=== PATIENT | female | born 1945 | race Hispanic/Latino ===

== ENCOUNTER 2018-03-15 11:53 | Emergency (ER) | payer MEDICARE, SELFPAY ==
[2018-03-15 12:12] VITALS: BP 144/85; PULSE 77; RESP 14; TEMP 37.1; O2SAT 97
--- NOTE | 2018-03-15 13:33 | ED_ITS ---
HPI - Extremity Problem <CHARLES Pace - Last Filed: 03/15/18 21:30> General Chief complaint: Extremity Problem,Nontraumatic Stated complaint: left leg pain, cough and cold Time Seen by Provider: 03/15/18 13:32 Source: patient Mode of arrival: ambulatory Limitations: no limitations History of Present Illness HPI Narrative: 72-year-old healthy female that is an everyday smoker here for complaint of pain into her posterior left leg radiating into her hip area over the past 3 days. She denies any trauma to the area. She denies any strenuous activity. She is ambulatory to the emergency room. She has been using icy hot that has been helping her discomfort. She denies any stressors to her pain. she denies any loss of bladder or bowel control. She states she also had a sore throat for the last several days as well. She denies any other concerns or compla Related Data Previous Rx's Medication Instructions Recorded cyclobenzaprine 5 mg PO TID PRN #10 tab 03/15/18 prednisone 40 mg PO DAILY #8 tab 03/15/18 Allergies Allergy/AdvReac Type Severity Reaction Status Date / Time doxylamine [From NyQuil] AdvReac Intermediate Anxiety Verified 03/15/18 12:16 pseudoephedrine [From NyQuil] AdvReac Intermediate Anxiety Verified 03/15/18 12: 16 Review of Systems <CHARLES Pace - Last Filed: 03/15/18 21:30> Constitutional Denies chills, Denies fever(s), Denies lethargy and Denies weakness Eyes Denies change in vision, Denies eye discharge, Denies irritation and Denies loss of vision ENT Ears, Nose, Mouth, and Throat: Reports sore throat Cardiovascular Denies chest pain, Denies irregular heart rhythm, Denies lightheadedness, Denies palpitations, Denies dyspnea, Denies dyspnea on exertion and Denies orthopnea Respiratory Denies cough, Denies dyspnea, Denies dyspnea on exertion and Denies wheezing Gastrointestinal Gastrointestinal: Denies abdominal pain, Denies change in bowel habits, Denies diarrhea, Denies nausea and Denies vomiting Genitourinary Denies hematuria, Denies flank pain, Denies urinary incontinence and Denies urinary urgency Musculoskeletal Denies back pain, Denies muscle weakness, Denies numbness and Denies tingling Comments: pain to left lower extremity Integumentary/Breasts Denies pruritus, Denies erythema, Denies rash and Denies wounds Neurologic Denies confusion, Denies loss of vision, Denies numbness, Denies tingling and Denies weakness Psychiatric Denies anxiety, Denies confusion, Denies depression, Denies homicidal ideation and Denies suicidal ideation Endocrine Denies palpitations Hematologic/Lymphatic Denies easy bruising Allergic/Immunologic Denies wheezing Exam <CHARLES Pace - Last Filed: 03/15/18 21:30> Initial Vital Signs Initial Vital Signs: Vital Signs Temperature 98.8 F 03/15/18 12:12 Pulse Rate 77 03/15/18 12:12 Respiratory Rate 14 03/15/18 12:12 Blood Pressure 144/85 H 03/15/18 12:12 Pulse Oximetry 97 03/15/18 12:12 Const General: cooperative and well developed Nutritional Appearance: well nourished Orientation: alert, awake, oriented x3 and not confused HENND Mouth: oral mucosae normal and moist mucous membranes Throat: posterior oropharynx abnormal erythema Eyes Conjunctivae: conjunctivae normal Sclera: sclerae normal Pupils: PERRL EOM: EOM intact bilaterally Neck Neck: normal visual inspection, trachea midline, No lymphadenopathy, No midline deformity and No JVD Lymphatic: No lymphedema Chest Chest: normal inspection of the chest Resp Effort & Inspection: normal respiratory effort, able to speak in complete sentences, no respiratory distress and no use of accessory muscles Auscultation: clear to auscultation bilaterally, no rales, no rhonchi and no wheezes Cardio Rate: regular rate Rhythm: regular rhythm Heart Sounds: no click, no gallops, no murmurs and no rubs Pulses: normal peripheral pulses Back/Spine/Pelvis Thoracic/Lumbar Spine: paraspinal tenderness Skin General: no rashes or lesions noted, No jaundice and No petechiae Neuro General: alert, oriented x3, gait normal and no focal motor deficits Speech: speech normal Extrem Other: left lower extremity with no signs of trauma. No deformities. No ecchymosis. Distal sensation is intact. Distal pulses are intact. Distal range of motion is intact. <Ivan Allen DO - Last Filed: 03/16/18 08:49> Initial Vital Signs Initial Vital Signs: Vital Signs Temperature 98.8 F 03/15/18 12:12 Pulse Rate 77 03/15/18 12:12 Respiratory Rate 14 03/15/18 12:12 Blood Pressure 144/85 H 03/15/18 12:12 Pulse Oximetry 97 03/15/18 12:12 Course <CHARLES Pace - Last Filed: 03/15/18 21:30> Orders Ordered: ED Orders 03/15/18 14:00 US periph venous low extrem lt Stat Strep Grp A by PCR Rapid Stat Vital Signs - 8 hr 03/15/18 15:37 Pulse Rate 71 Respiratory Rate 16 Blood Pressure [Right Arm] 147/83 H Pulse Oximetry 98 <Ivan Allen DO - Last Filed: 03/16/18 08:49> Orders Ordered: ED Orders 03/15/18 14:00 US periph venous low extrem lt Stat Strep Grp A by PCR Rapid Stat Vital Signs - 8 hr 03/15/18 15:37 Pulse Rate 71 Respiratory Rate 16 Blood Pressure [Right Arm] 147/83 H Pulse Oximetry 98 MDM - Extremity (Nontraumatic) <CHARLES Pace - Last Filed: 03/15/18 21:30> Lab Data Lab Results 03/15/18 Range/Units 14:00 Group A Strep (PCR) Negative MDM Narrative Medical decision making narrative: Rapid strep test was obtained was negative for any acute findings. Ultrasound left lower extremity was obtained was negative for any clots. Pain radiates from the lumbar paraspinals into the posterior buttocks and into the thigh. Signs and symptoms presents as lumbar strain with sciatica. She she is prescribed cyclobenzaprine help with any muscle spasm. She is also prescribed short course of prednisone to help with sciatica. [id number] Tylenol as needed for any discomfort. For any worsening symptoms return to the emergency room. Follow up with primary care provider. <Ivan Allen DO - Last Filed: 03/16/18 08:49> Lab Data Lab Results 03/15/18 Range/Units 14:00 Group A Strep (PCR) Negative Discharge Plan Departure Patient Disposition: Home Clinical Impression: Lower back pain, Upper respiratory infection, viral Discharge Date/Time: 03/15/18 15:40 Interventions: ED Discharge Assessment Last Done: 03/15/18 15:39 Instructions: DI for Back Pain With Sciatica Activity Restrictions/Additional Instructions: Rapid strep test was obtained was negative for any acute findings signs and symptoms present as a viral upper respiratory infection. Plenty of fluids and rest.Ultrasound left lower extremity was obtained was negative for any clots. Signs symptoms presents as a lower back strain with sciatica. You are prescribed cyclobenzaprine help with any muscle spasm no driving on the muscle relaxers a can make you drowsy. You are also prescribed short course of prednisone a steroid to help with inflammation to help with sciatica. Over-the- counter Tylenol as needed for any discomfort. For any worsening symptoms return to the emergency room. Follow up with primary care provider. Prescriptions: New prednisone 20 mg tablet 40 mg PO DAILY Qty: 8 RF: 0 cyclobenzaprine 5 mg tablet 5 mg PO TID PRN (Reason: muscle spasm) Qty: 10 RF: 0 Referrals: [facility] [Provider Group] <Ivan Allen DO - Last Filed: 03/16/18 08:49> Cosign ED Attending Doug Attestation: I was immediately available in the department for consultation. Documentation has been reviewed. I agree with assessment and plan.
--- NOTE | 2018-03-15 14:00 | DI.US.S_ITS ---
PROCEDURE: US PERIPH VENOUS LOW EXTREM LT INDICATIONS: LEFT LEG PAIN TECHNIQUE: Real-time imaging, as well as color and pulse Doppler interrogation, were performed of the lower extremity deep veins from the inguinal ligament to the popliteal fossa. COMPARISON: None. FINDINGS: The deep veins are normally compressible, and free of intraluminal thrombus. Color and pulse Doppler demonstrate normal phasic intraluminal flow. There is normal augmentation response to distal compression maneuver. IMPRESSION: No evidence of left lower extremity deep vein thrombosis. Dictated by: Mario Simon M.D. on 03/15/2018 at 13:23 Approved by: Mario Simon M.D. on 03/15/2018 at 13:24
[2018-03-15 15:00] LABS: Strep Grp A by PCR Rapid Negative
[2018-03-15 15:37] VITALS: BP 147/83; PULSE 71; RESP 16; O2SAT 98
== END 2018-03-15 15:40 | disposition home or self-care (01) ==
PROVIDERS: Emergency Provider Nurse Practitioner Family
DX: M54.5 Low back pain (principal); M79.605 Pain in left leg
CPT/HCPCS: 87651; 93971; 99282; 99284